=== PATIENT | female | born 1945 | race Caucasian/White ===

== ENCOUNTER 2016-06-21 20:46 | Emergency (ER) | payer MEDICARE, OTHER ==
[2016-06-21] MEDS ORDERED: OXYCODONE/ACETAMINOPHEN 5/325 MG TABLET ONE (21:47)
--- NOTE | 2016-06-22 07:15 | RAD ---
WRIST- RIGHT 3 VIEWS HISTORY: Ground level fall. COMPARISONS: None. FINDINGS: 3 views of the right wrist were performed demonstrating diffuse bony osteopenia. There is evidence of a subtle fracture of the ulnar styloid. On the lateral view, there is questionable disruption of the dorsal cortex of the distal radial metaphysis as well. The carpal structures are intact. No focal soft tissue abnormalities are seen. IMPRESSION: 1. A nondisplaced fracture of the ulnar styloid. 2. A questionable nondisplaced fracture of the distal radial metaphysis. 3. Diffuse bony osteopenia.
--- NOTE | 2016-06-22 07:16 | RAD ---
KNEE- RIGHT 4 OR MORE VIEWS HISTORY: Ground-level fall. COMPARISONS: None. FINDINGS: 4 views of the right knee were performed demonstrating grossly intact osseous structures. There is beaking of the tibial spines with medial compartment joint space loss. No lytic or blastic lesions are seen. No evidence of a significant knee joint effusion is observed. IMPRESSION: 1. Right knee osteoarthritic changes with medial compartment joint space loss. 2. No discrete fracture or significant joint effusion observed.
== END 2016-06-21 23:06 | disposition home or self-care (01) ==
LOC: ED 20:46
DX: S62.101A Fracture of unspecified carpal bone, right wrist, initial encounter for closed fracture (principal); M81.0 Age-related osteoporosis without current pathological fracture; W01.0XXA Fall on same level from slipping, tripping and stumbling without subsequent striking against object, initial encounter
CPT/HCPCS: 73564; 73110; 99284; 29105; 99283; A9270